=== PATIENT | female | born 1980 | race Hispanic/Latino ===

== ENCOUNTER 2016-04-18 09:29 | Emergency (ER) | payer OTHER ==
[~2016-04-18] VITALS: Ht 162.6 cm; Wt 82.1 kg
[~2016-04-18 09:29] MED LIST: AMLODIPINE BESY10 M1 PO; FIORICET 50-301 EACH PO; IBUPROFEN800 M1 PO; LOPRESSOR50 M1 PO; NORVASC5 M1 PO; PANTOPRAZOLE SO20 M1 PO; ZOFRAN ODT4 M1 PO
--- NOTE | 2016-04-18 10:00 | ED UPPER/LOWER EXTREMITY COMPL ---
History of Present Illness General Chief Complaint: Lower Extremity Injury Stated Complaint: LT KNEE PAIN Source: patient Exam Limitations: no limitations Vital Signs & Intake/Output Vital Signs & Intake/Output Vital Signs Date Time Temp Pulse Resp B/P Pulse O2 O2 Flow FiO2 Ox Delivery Rate 04/18 1015 96.0 78 16 110/64 97 Room Air 04/18 0943 95.2 82 18 121/80 99 Room Air Allergies Coded Allergies: No Known Allergies (10/08/15) Reconcile Medications Amlodipine Besylate 10 MG TABLET 1 TAB PO DAILY BP (Reported) Cyclobenzaprine HCl 10 MG TABLET 1 TAB PO QPM PRN SPASM Ibuprofen 800 MG TABLET 1 TAB PO TID PRN PAIN Metoprolol Tartrate (Lopressor) 50 MG TABLET 1 TAB PO BID hypertension Naproxen 500 MG TABLET 1 TAB PO BIDP PRN PAIN (Reported) Pantoprazole Sodium 20 MG TABLET.DR 1 TAB PO DAILY GI (Reported) Triage Note: C/O LEFT KNEE PAIN SINCE LAST PM, NO KNOWN INJURY. Triage Nurses Notes Reviewed? yes Onset: Abrupt Duration: hour(s): (12) Timing: single episode today Severity: moderate Pain/Injury Location: Left: Knee. Modifying Factors: Worsens With: movement. : No Patient currently breastfeeds: No HPI: This is a 35-year-old female presents to the ER chief complaint of left knee pain since last night. Patient denies any trauma or fall. Pain is worse with range of motion and walking. Pain is on the medial aspect of left knee. No bruising. No radiation of the pain. No swelling. No history of similar symptoms in the past before. She tried to take some jhvb-jso-ikwkrym medications without any relief. Past History Travel History Traveled to [place] past 21 day No Medical History Any Pertinent Medical History? see below for history Neurological: NONE EENT: NONE Cardiovascular: hypertension Respiratory: asthma Gastrointestinal: NONE Hepatic: NONE Renal: NONE Musculoskeletal: sciatica Psychiatric: NONE Endocrine: NONE Blood Disorders: NONE Cancer(s): NONE Surgical History Surgical History: non-contributory Psychosocial History What is your primary language Afghan Tobacco Use: Never used ETOH Use: occasional use Family History Hx Contributory? No Review of Systems Review of Systems Constitutional: Denies: chills, fever. EENTM: Reports: no symptoms. Respiratory: Denies: cough, short of breath. Cardiovascular: Denies: chest pain, palpitations. Gastrointestinal/Abdominal: Denies: abdominal pain. Genitourinary: Reports: no symptoms. Musculoskeletal: Reports: joint pain, joint swelling. Skin: Reports: no symptoms. Neurological/Psychological: Reports: no symptoms. Hematologic/Endocrine: Denies: bruising, bleeding, polyuria, polydipsia. Immunological: Denies: splenectomy. All Other Systems: Reviewed and Negative Physical Exam Physical Exam General Appearance: well developed/nourished, alert, awake, anxious, mild distress Head: atraumatic Eyes: Bilateral: PERRL, EOMI. Ears, Nose, Throat: normal pharynx, normal ENT inspection, hearing grossly normal Neck: normal inspection, supple Cardiovascular/Respiratory: regular rate/rhythm Peripheral Pulses: 2+ radial (R), 2+ ulnar (L) Gastrointestinal: SOFT NONTENDER Back: normal inspection Leg Left: normal range of motion, mass Leg Right: normal range of motion, normal inspection Hip Left: normal range of motion, mass Hip Right: normal range of motion, normal inspection Knee Left: soft tissue tenderness, limited range of motion Knee Right: normal range of motion, normal inspection Foot Left: normal inspection, normal range of motion Foot Right: normal inspection, normal range of motion Skin: intact, normal color, warm/dry Lymphatic: no anterior cervical jerry Progress Differential Diagnosis: contusion, fracture, sprain, ARTHRITIS Plan of Care: Orders Procedure Date/time Status Durable Medical Equipment 04/18 1048 Active Diagnostic Imaging: Viewed by Me: Radiology Read. Discussed w/RAD: Radiology Read. Radiology Impression: PATIENT: LIANA SAUCEDO PRESENT AGE: 35 PATIENT ACCOUNT NO: [id number] : 80 LOCATION: [facility] ORDERING PHYSICIAN: KERA WANG MD SERVICE DATE: 04/18/16 EXAM TYPE: RAD - XRY-KNEE COMPLETE LEFT EXAMINATION: XR KNEE, LEFT CLINICAL INFORMATION: Left knee pain. COMPARISON: None TECHNIQUE: Four views of the left knee. FINDINGS: There is no evidence of fracture, dislocation, or knee joint effusion. Joint spaces are well-maintained. The soft tissues appear unremarkable. IMPRESSION: No evidence of fracture, dislocation, or knee joint effusion. DICTATED BY: CASSANDRA SANDS MD DATE/TIME DICTATED:04/18/161034 RICE CLEANING MACHINE TENDER:KATY DATE/TIME TRANSCRIBED:02/10/17 / 1035 CONFIDENTIAL, DO NOT COPY WITHOUT APPROPRIATE AUTHORIZATION. <Electronically signed in Other Vendor System> SIGNED BY: CASSANDRA SANDS MD 04/18/16 1040 Departure Departure Time of Disposition: 1051 Disposition: HOME OR SELF CARE Condition: Stable Clinical Impression Primary Impression: Knee sprain Referrals: WESLEY GOLDSTEIN APRN (PCP/Family) DAMARI CHING MD Additional Instructions: Use the knee immobilizer and crutches as directed. Take the ibuprofen and Flexeril as directed. Ice and rest and elevate the extremity. Please follow-up with the orthopedic doctor in a week's time if you have no improving symptoms. Departure Forms: Customer Survey General Discharge Information Prescriptions: Current Visit Scripts Cyclobenzaprine HCl 1 TAB PO QPM PRN SPASM #12 TAB Procedures Splinting Location: LEFT KNEE IMMOBILIZER, CRUTCHES Splint Applied By: splint applied by other Pre-Proc Neuro Vasc Exam: normal Post-Proc Neuro Vasc Exam: normal
[2016-04-18 10:15] VITALS: BP 110/64
--- NOTE | 2016-04-18 10:40 | RADIOLOGY REPORT ---
EXAMINATION: XR KNEE, LEFT CLINICAL INFORMATION: Left knee pain. COMPARISON: None TECHNIQUE: Four views of the left knee. FINDINGS: There is no evidence of fracture, dislocation, or knee joint effusion. Joint spaces are well-maintained. The soft tissues appear unremarkable. IMPRESSION: No evidence of fracture, dislocation, or knee joint effusion.
[2016-04-18] MEDS ORDERED: CYCLOBENZAPRINE10 M1 PO (10:51)
[2016-04-18] MEDS ORDERED: IBUPROFEN800 M1 PO (10:51)
[2016-04-18] MEDS ORDERED: NAPROXEN500 M2 PO (11:16)
== END 2016-04-18 11:19 ==
LOC: ERH 09:29
DX: S83.92XA Sprain of unspecified site of left knee, initial encounter (principal); X58.XXXA Exposure to other specified factors, initial encounter
CPT/HCPCS: 73562-LT; J1885

== ENCOUNTER 2017-09-09 16:03 | Emergency (ER) | payer OTHER ==
[~2017-09-09] VITALS: Ht 162.6 cm; Wt 83.9 kg
[~2017-09-09 16:03] MED LIST changes: +AMOXICILLIN500 M3 PO; +CYCLOBENZAPRINE10 M1 PO; +IBUPROFEN600 M1 PO; +MUCINEX DM ER1 EACH PO; +NAPROXEN500 M2 PO; +NEOMYCIN-POLYMY10 M1 OT
[2017-09-09 16:08] VITALS: BP 130/81
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
[2017-09-09] MEDS ORDERED: IBUPROFEN800 M1 PO (16:16)
[2017-09-09] MEDS ORDERED: PERCOCET 5-3251 EACH PO (16:16)
== END 2017-09-09 16:22 ==
LOC: ERH 16:03
DX: T23.222A Burn of second degree of single left finger (nail) except thumb, initial encounter (principal); X19.XXXA Contact with other heat and hot substances, initial encounter; Y92.9 Unspecified place or not applicable; Y93.89 Activity, other specified
CPT/HCPCS: 90471; 90714

== ENCOUNTER 2017-10-29 20:41 | Emergency (ER) | payer OTHER ==
[~2017-10-29] VITALS: Ht 162.6 cm; Wt 73.5 kg
[~2017-10-29 20:41] MED LIST changes: +PERCOCET 5-3251 EACH PO
[2017-10-29 22:13] LABS: ABSOLUTE BASOPHIL COUNT 0.1 /CUMM (0.0-0.2); ABSOLUTE EOSINOPHIL COUNT 0.1 /CUMM (0.0-0.7); ABSOLUTE GRANULOCYTE CT 6.7 /CUMM (1.4-6.5); ABSOLUTE LYMPH COUNT 3.4 /CUMM (1.2-3.4); BASOPHIL % 0.7 % (0.0-2.0); EOSINOPHIL % 0.9 % (0-5); GRANULOCYTE % 59.8 % (42.2-75.2); HEMATOCRIT 41.3 % (37-47); MEAN CORPUSCULAR HGB 28.3 PG (27.0-31.0); MEAN CORPUSCULAR HGB CONC 33.4 G/DL (33.0-37.0); MEAN CORPUSCULAR VOLUME 84.8 FL (81.0-99.0); MEAN PLATELET VOLUME 8.5 FL (7.4-10.4); PLATELET COUNT 274 /CUMM (130-400); RBC DISTRIBUTION WIDTH 13.6 % (11.5-14.5); RED BLOOD CELL CT 4.86 /CUMM (4.20-5.40); WHITE BLOOD CELL COUNT 11.3 /CUMM (4.8-10.8)
[2017-10-29 22:51] VITALS: BP 142/95
--- NOTE | 2017-10-29 23:47 | CT SCAN REPORT ---
EXAMINATION: CT ABDOMEN AND PELVIS WITH CONTRAST CLINICAL INFORMATION: Lower abdominal pain. COMPARISON: None. TECHNIQUE: Contiguous axial thin section helical images of the abdomen and pelvis were performed following the administration of 95 mL of intravenous Optiray 320. The data set was reformatted in the coronal and sagittal planes and reviewed on an independent workstation. DLP: 457 mGy-cm. FINDINGS: The visualized lung bases are clear. The visualized portions of the heart are unremarkable. The liver is of normal size and attenuation without focal lesions nor intrahepatic biliary ductal dilation. Patient is status post cholecystectomy. Surgical clips are present. The spleen, pancreas, adrenal glands are unremarkable. Both kidneys are of normal size and attenuation without hydronephrosis or nephrolithiasis. Following the administration of IV contrast, prompt symmetric nephrograms are displayed. There is no abdominal free fluid. There is neither mesenteric nor retroperitoneal lymphadenopathy. Normal unopacified loops of small and large bowel are identified. There is no pelvic free fluid. The uterus is not identified. Both ovaries are visualized. The urinary bladder is unremarkable. There is neither pelvic nor inguinal lymphadenopathy. Bone windows: Neither sclerotic nor lytic bone lesions are identified. There is mild disc height loss at L5/S1. IMPRESSION: No evidence for acute abdominal or pelvic inflammatory or infectious processes.
[2017-10-30] MEDS ORDERED: ZOFRAN ODT4 M1 SL (00:11)
--- NOTE | 2017-10-30 00:11 | ED GENERAL ADULT ---
History of Present Illness General Chief Complaint: General Adult Stated Complaint: ACID REFLUX PER FAMILY Source: patient Exam Limitations: no limitations Vital Signs & Intake/Output Vital Signs & Intake/Output Vital Signs Date Time Temp Pulse Resp B/P B/P Pulse O2 O2 Flow FiO2 Mean Ox Delivery Rate 10/29 2251 97.6 70 18 142/95 98 Room Air 10/29 2200 Room Air 10/29 2046 96.6 92 20 136/89 99 Room Air ED Intake and Output 10/30 0000 10/29 1200 Intake Total 0 Output Total Balance 0 Intake, Oral 0 Patient 162 lb Weight Weight Reported by Patient Measurement Method Allergies Coded Allergies: No Known Allergies (07/16/17) Reconcile Medications Amlodipine Besylate 10 MG TABLET 1 TAB PO DAILY BP (Reported) Amoxicillin 500 MG TABLET 1 TAB PO BID PRN EAR INFECTION Cyclobenzaprine HCl 10 MG TABLET 1 TAB PO QPM PRN SPASM Cyclobenzaprine HCl 10 MG TABLET 1 TAB PO TID PRN muscle spasm Cyclobenzaprine HCl 10 MG TABLET 1 TAB PO Q8P PAIN OR SPASM Cyclobenzaprine HCl 10 MG TABLET 1 TAB PO Q6P PRN muscle strain/spasm Guaifenesin/Dextromethorphan (Mucinex Dm ER 1,200-60 MG Tab) 1,200 MG-60 MG TBMP.12HR 1 TAB PO BID PRN CONGESTION Ibuprofen 800 MG TABLET 1 TAB PO TID PAIN Ibuprofen 800 MG TABLET 1 TAB PO TID PRN pain Ibuprofen 600 MG TABLET 1 TAB PO TID PRN PAIN with food Ibuprofen 600 MG TABLET 1 TAB PO Q6P PRN pain with food Ibuprofen 800 MG TABLET 1 TAB PO TID PRN PAIN Metoprolol Tartrate (Lopressor) 50 MG TABLET 1 TAB PO BID hypertension Naproxen 500 MG TABLET 1 TAB PO BIDP PRN PAIN (Reported) Neomycin/Polymyxin B Sulf/Hc (Xsasbiui-Sgmhsmagy-Vq Ear Susp) 3.5 MG/ML-10,000 UNIT/ML-1 % DROPS.SUSP 4 GTT OT TID OTITIS EXTERNA Ondansetron (Zofran Odt) 4 MG TAB.RAPDIS 1 TAB SL TID PRN nausea Oxycodone HCl/Acetaminophen (Percocet 5-325 MG Tablet) 5 MG-325 MG TABLET 1-2 TAB PO BID PAIN Pantoprazole Sodium 20 MG TABLET.DR 1 TAB PO DAILY GI (Reported) Triage Note: PT HERE WITH C/O NAUSEA X4 DAYS AND VOMITING TODAY. PT REPORTS PAIN AND BURNING IN THE EPIGASTRIC AREA. Triage Nurses Notes Reviewed? yes Onset: Gradual Duration: day(s): Timing: constant : No Patient currently breastfeeds: No HPI: 37-year-old female with a history of hypertension and asthma presenting with burning epigastric pain 4 days. States that the pain is nonradiating with no worsening or alleviating factors. She endorses nausea with multiple episodes of vomiting. States that her nausea and vomiting have since resolved and she is now able to tolerate p.o. Has been using omeprazole without relief. Denies fevers, chest pain, shortness of breath, diarrhea, bloody stools, melena, dysuria. No recent sick contacts or travel. (Sabrina Lee) Past History Travel History Traveled to [place] past 21 day No Medical History Any Pertinent Medical History? see below for history Neurological: NONE EENT: NONE Cardiovascular: hypertension Respiratory: asthma Gastrointestinal: NONE Hepatic: cholelithiasis Renal: NONE Musculoskeletal: sciatica Psychiatric: NONE Endocrine: NONE Blood Disorders: NONE Cancer(s): NONE DIRECT MAIL CLERK/Reproductive: NONE Tetanus Vaccine: 09/09/17 Surgical History Surgical History: hysterectomy Psychosocial History What is your primary language Chinese Tobacco Use: Never used ETOH Use: denies use Illicit Drug Use: denies illicit drug use Family History Hx Contributory? No (Sabrina Lee) Review of Systems Review of Systems Constitutional: Reports: no symptoms. EENTM: Reports: no symptoms. Respiratory: Reports: no symptoms. Cardiovascular: Reports: no symptoms. GI: Reports: see HPI. Genitourinary: Reports: no symptoms. Musculoskeletal: Reports: no symptoms. Skin: Reports: no symptoms. Neurological/Psychological: Reports: no symptoms. Hematologic/Endocrine: Reports: no symptoms. Immunologic/Allergic: Reports: no symptoms. All Other Systems: Reviewed and Negative (Sabrina Lee) Physical Exam Physical Exam General Appearance: well developed/nourished, no apparent distress, alert, awake Comments: Gen.: Well-nourished, well-developed, no acute distress. Head: Normocephalic, atraumatic. Eyes: Normal inspection bilaterally Ears: Normal inspection bilaterally Nose: Normal inspection Neck: Normal inspection Lungs: clear to auscultation bilaterally, normnal breath sounds Heart: regular rate and rhythm Abdomen: soft, nondistended, normal bowel sounds, diffuse tenderness to palpation but worse in the epigastrium, no rebound or guarding Back: No CVA tenderness Extremities: Normal inspection Neurologic: alert and oriented x3, steady gait Skin: warm and dry Psychiatric: Normal mood and affect, no apparent delusions or hallucinations, behavior appropriate Core Measures ACS in differential dx? No CVA/TIA Diagnosis: No Sepsis Present: No Sepsis Focused Exam Completed? No (Johann SILVA,Sabrina) Progress Differential Diagnoses I considered the following diagnoses in my evaluation of the patient: [GERD versus gastritis versus peptic ulcer versus pancreatitis versus biliary versus perforated viscus versus ACS] Plan of Care: Orders Procedure Date/time Status Add-on Test (ER Only) 10/30 2247 Active Add-on Test (ER Only) 10/29 2218 Active URINALYSIS 10/30 2215 Complete LACTIC ACID 10/29 2156 Complete HUMAN BETA HCG SCREEN 10/29 2156 Complete TROPONIN LEVEL 10/30 2135 Complete LIPASE 10/30 2135 Complete COMPREHENSIVE METABOLIC PANEL 10/30 2135 Complete CBC WITHOUT DIFFERENTIAL 10/30 2135 Complete EKG 10/29 2045 Active Current Medications Sig/Saturnino Start time Last Medication Dose Stop Time Status Admin Morphine Sulfate 4 MG ONCE ONE 10/29 2229 CAN (MORPHINE SULFATE) 10/29 2230 Laboratory Tests 10/29/173: Urine Color YEL, Urine Clarity CLEAR, Urine pH 6.5, Ur Specific [place] 1.010, Urine Protein NEG, Urine Ketones NEG, Urine Nitrite NEG, Urine Bilirubin NEG, Urine Urobilinogen 1.0, Ur Leukocyte Esterase NEG, Ur Microscopic SEDIMENT EXAMINED, Urine RBC 1-3, Ur Epithelial Cells FEW, Urine Hemoglobin TRACE-INTACT, Urine Glucose NEG 10/29/172156: Anion Gap 10, Estimated GFR > 60, BUN/Creatinine Ratio 28.3 H, Glucose 101 H, Lactic Acid 0.9, Calcium 9.5, Total Bilirubin 0.5, AST 37 H, ALT 61 H, Alkaline Phosphatase 77, Troponin I < 0.01, Total Protein 7.4, Albumin 4.4, Globulin 3.0, Albumin/Globulin Ratio 1.5, Lipase 117, Total Beta HCG NEGATIVE, CBC w Diff NO MAN DIFF REQ, RBC 4.86, MCV 84.8, MCH 28.3, MCHC 33.4, RDW 13.6, MPV 8.5, Gran % 59.8, Lymphocytes % 29.8, Monocytes % 8.8, Eosinophils % 0.9, Basophils % 0.7, Absolute Granulocytes 6.7 H, Absolute Lymphocytes 3.4, Absolute Monocytes 1.0 H, Absolute Eosinophils 0.1, Absolute Basophils 0.1 EKG is nonischemic, troponin negative Labs unremarkable CT scan unremarkable Patient reports improvement in her symptoms after GI cocktail, Pepcid, morphine, and Tylenol Likely with GERD versus gastritis, instructed to continue her omeprazole, she will use Maalox [id number] for breakthrough pain, given Zofran in case her nausea returns. At this time patient is well-appearing with normal vital signs, and requesting to be discharged home. She will follow-up with her PMD for reevaluation and given strict return precautions. Initial ED EKG: normal sinus rhythm, no ST T wave changes (Sabrina Lee) Departure Departure Disposition: HOME OR SELF CARE Condition: Stable Clinical Impression Primary Impression: Epigastric pain Secondary Impressions: Nausea Referrals: Annie Payne APRN (PCP/Family) Santos Messina MD Additional Instructions: Continue taking your omeprazole as prescribed. You may use Maalox for breakthrough pain. Use Zofran as needed for nausea. Follow-up with the microsoft net developer for reevaluation. Return to the emergency department for any new or worsening symptoms Departure Forms: Customer Survey General Discharge Information Prescriptions: Current Visit Scripts Ondansetron (Zofran Odt) 1 TAB SL TID PRN nausea #20 TAB (Sabrina Lee) PA/LACING PRESSER Co-Sign Statement Statement: ED Attending supervision documentation- [] I saw and evaluated the patient. I have also reviewed all the pertinent lab results and diagnostic results. I agree with the findings and the plan of care as documented in the PA's/LACING PRESSER's documentation. [X] I have reviewed the ED Record and agree with the PA's/LACING PRESSER's documentation. [] Additions or exceptions (if any) to the PAs/LACING PRESSER's note and plan are summarized below: [] (Woodrow Jean DO) Critical Care Note Critical Care Note Critical Care Time: non-applicable (Sabrina Lee)
== END 2017-10-30 00:42 ==
LOC: ERH 20:41
PROVIDERS: Physician Assistant
DX: R10.13 Epigastric pain (principal); R11.0 Nausea; I10 Essential (primary) hypertension; J45.909 Unspecified asthma, uncomplicated
CPT/HCPCS: 74177; 81001; 81025; 93005; 93010; 96361; 96374; J0131

== ENCOUNTER 2017-12-03 18:23 | Emergency (ER) | payer OTHER ==
[~2017-12-03] VITALS: Ht 162.6 cm; Wt 85.3 kg
[~2017-12-03 18:23] MED LIST changes: +ZOFRAN ODT4 M1 SL
[2017-12-03 19:30] LABS: ABSOLUTE BASOPHIL COUNT 0.2 /CUMM (0.0-0.2); ABSOLUTE EOSINOPHIL COUNT 0.1 /CUMM (0.0-0.7); ABSOLUTE GRANULOCYTE CT 7.4 /CUMM (1.4-6.5); ABSOLUTE LYMPH COUNT 3.3 /CUMM (1.2-3.4); ABSOLUTE MONOCYTE COUNT 0.9 /CUMM (0.10-0.60); BASOPHIL % 1.5 % (0.0-2.0); EOSINOPHIL % 0.9 % (0-5); GRANULOCYTE % 62.6 % (42.2-75.2); MEAN CORPUSCULAR HGB 28.3 PG (27.0-31.0); MEAN CORPUSCULAR HGB CONC 33.4 G/DL (33.0-37.0); MEAN CORPUSCULAR VOLUME 84.6 FL (81.0-99.0); MEAN PLATELET VOLUME 8.6 FL (7.4-10.4); PLATELET COUNT 264 /CUMM (130-400); RBC DISTRIBUTION WIDTH 12.9 % (11.5-14.5); RED BLOOD CELL CT 5.09 /CUMM (4.20-5.40); WHITE BLOOD CELL COUNT 11.9 /CUMM (4.8-10.8)
--- NOTE | 2017-12-03 20:34 | ED GENERAL ADULT ---
History of Present Illness General Chief Complaint: Chest Pain Stated Complaint: CP, PALPATATIONS, OLMOS Source: patient, family Exam Limitations: language barrier Vital Signs & Intake/Output Vital Signs & Intake/Output Vital Signs Date Time Temp Pulse Resp B/P B/P Pulse O2 O2 Flow FiO2 Mean Ox Delivery Rate 12/03 2046 Room Air 12/03 2045 98.1 93 16 128/83 99 Room Air 12/03 183 98.1 100 18 131/80 98 Room Air Allergies Coded Allergies: No Known Allergies (07/16/17) Reconcile Medications Amlodipine Besylate 10 MG TABLET 1 TAB PO DAILY BP (Reported) Amoxicillin 500 MG TABLET 1 TAB PO BID PRN EAR INFECTION Cyclobenzaprine HCl 10 MG TABLET 1 TAB PO QPM PRN SPASM Cyclobenzaprine HCl 10 MG TABLET 1 TAB PO TID PRN muscle spasm Cyclobenzaprine HCl 10 MG TABLET 1 TAB PO Q8P PAIN OR SPASM Cyclobenzaprine HCl 10 MG TABLET 1 TAB PO Q6P PRN muscle strain/spasm Guaifenesin/Dextromethorphan (Mucinex Dm ER 1,200-60 MG Tab) 1,200 MG-60 MG TBMP.12HR 1 TAB PO BID PRN CONGESTION Ibuprofen 800 MG TABLET 1 TAB PO TID PAIN Ibuprofen 800 MG TABLET 1 TAB PO TID PRN pain Ibuprofen 600 MG TABLET 1 TAB PO TID PRN PAIN with food Ibuprofen 600 MG TABLET 1 TAB PO Q6P PRN pain with food Ibuprofen 800 MG TABLET 1 TAB PO TID PRN PAIN Metoprolol Tartrate (Lopressor) 50 MG TABLET 1 TAB PO BID hypertension Naproxen 500 MG TABLET 1 TAB PO BIDP PRN PAIN (Reported) Neomycin/Polymyxin B Sulf/Hc (Ftbkeehk-Bhkzyahdr-Ob Ear Susp) 3.5 MG/ML-10,000 UNIT/ML-1 % DROPS.SUSP 4 GTT OT TID OTITIS EXTERNA Ondansetron (Zofran Odt) 4 MG TAB.RAPDIS 1 TAB SL TID PRN nausea Oxycodone HCl/Acetaminophen (Percocet 5-325 MG Tablet) 5 MG-325 MG TABLET 1-2 TAB PO BID PAIN Pantoprazole Sodium 20 MG TABLET.DR 1 TAB PO DAILY GI (Reported) Triage Note: 37 YEAR OLD FEMALE STATES THAT SHE HAS BEEN HAVING MID STERNAL NON RADIATING CP FOR THE PAST 3 DAYS. PAIN CONSTANT AND DESCRIBES A SQUEEZING Triage Nurses Notes Reviewed? yes Onset: Gradual Duration: day(s): Timing: constant : No Patient currently breastfeeds: No HPI: 37 y/o female with a h/o HTN, GERD, and asthma presenting with CP x3 days. Reports a non-radiating substernal pain that feels like someone is squeezing her chest. States it first started while she was getting ready for bed a few nights ago. The pain is worse with laying flat, and mildly better with sitting upright. Also reports she developed epigastric burning pain tonight. Has a h/o GERD and took nexium without relief. Denies assoicated SOB, nausea, vomiting, diaphoresis , light headedness, dizziness. Past History Travel History Traveled to [place] past 21 day No Medical History Any Pertinent Medical History? see below for history Neurological: NONE EENT: NONE Cardiovascular: hypertension Respiratory: asthma Gastrointestinal: NONE Hepatic: cholelithiasis Renal: NONE Musculoskeletal: sciatica Psychiatric: NONE Endocrine: NONE Blood Disorders: NONE Cancer(s): NONE CELERY TIER/Reproductive: NONE Tetanus Vaccine: 09/09/17 Surgical History Surgical History: hysterectomy Psychosocial History What is your primary language Greenlandic Tobacco Use: Never used ETOH Use: denies use Illicit Drug Use: denies illicit drug use Family History Hx Contributory? No Review of Systems Review of Systems Constitutional: Reports: no symptoms. EENTM: Reports: no symptoms. Respiratory: Reports: no symptoms. Cardiovascular: Reports: see HPI. GI: Reports: see HPI. Genitourinary: Reports: no symptoms. Musculoskeletal: Reports: no symptoms. Skin: Reports: no symptoms. Neurological/Psychological: Reports: no symptoms. Hematologic/Endocrine: Reports: no symptoms. Immunologic/Allergic: Reports: no symptoms. All Other Systems: Reviewed and Negative Physical Exam Physical Exam General Appearance: well developed/nourished, no apparent distress, alert, awake Comments: Gen.: Well-nourished, well-developed, no acute distress. Head: Normocephalic, atraumatic. Eyes: Normal inspection bilaterally Ears: Normal inspection bilaterally Nose: Normal inspection Neck: Normal inspection Lungs: clear to auscultation bilaterally, normnal breath sounds, no chest wall tenderness Heart: regular rate and rhythm Abdomen: soft, nondistended, normal bowel sounds, mild tenderness in the epigastrium, no rebound or guarding Extremities: Normal inspection Neurologic: alert and oriented x3, steady gait Skin: warm and dry Psychiatric: Normal mood and affect, no apparent delusions or hallucinations, behavior appropriate Core Measures ACS in differential dx? No CVA/TIA Diagnosis: No Sepsis Present: No Sepsis Focused Exam Completed? No Progress Differential Diagnoses I considered the following diagnoses in my evaluation of the patient: [GERD versus gastritis versus peptic ulcer disease, low concern for ACS versus angina versus PE versus Boerhaave's versus aortic dissection versus tamponade versus pericardial effusion versus pericarditis] Plan of Care: Orders Procedure Date/time Status Add-on Test (ER Only) 12/03 2200 Active TROPONIN LEVEL 12/03 2200 Complete EKG 12/03 2200 Active Add-on Test (ER Only) 12/03 2041 Active Add-on Test (ER Only) 12/03 2033 Active LIPASE 12/03 1917 Complete HUMAN BETA HCG SCREEN 12/03 1917 Complete WESTERGREN SED RATE 12/03 1917 Complete C-REACTIVE PROTEIN 12/03 1917 Complete TROPONIN LEVEL 12/03 183 Complete COMPREHENSIVE METABOLIC PANEL 12/03 183 Complete CBC WITHOUT DIFFERENTIAL 12/03 1833 Complete EKG 12/03 1825 Active Laboratory Tests 12/03/17 2218: Troponin I < 0.01 12/03/171917: Anion Gap 10, Estimated GFR > 60, BUN/Creatinine Ratio 22.0, Glucose 124 H, Calcium 9.3, Total Bilirubin 0.4, AST 37 H, ALT 71 H, Alkaline Phosphatase 80, Troponin I < 0.01, C-Reactive Prot, Quant < 0.5, Total Protein 7.3, Albumin 4.3, Globulin 3.0, Albumin/Globulin Ratio 1.4, Lipase 135, Total Beta HCG NEGATIVE, CBC w Diff NO MAN DIFF REQ, RBC 5.09, MCV 84.6, MCH 28.3, MCHC 33.4, RDW 12.9, MPV 8.6, Gran % 62.6, Lymphocytes % 27.6, Monocytes % 7.4, Eosinophils % 0.9, Basophils % 1.5, Absolute Granulocytes 7.4 H, Absolute Lymphocytes 3.3, Absolute Monocytes 0.9 H, Absolute Eosinophils 0.1, Absolute Basophils 0.2, ESR Westergren 6 12/03/171833: Urine Test Cancelled EKG showed normal sinus rhythm and troponin negative x2. Labs are otherwise unremarkable Chest x-ray unremarkable Patient reports complete resolution of her symptoms after GI cocktail and Pepcid She has a heart score of 1, she scored 1 point for her history of hypertension There is low concern for cardiac etiology, her symptoms are likely secondary to GERD Instructed to continue Nexium and Maalox as needed for breakthrough pain Counseled on supportive care and strict return precautions Initial ED EKG: none Departure Departure Disposition: HOME OR SELF CARE Condition: Stable Clinical Impression Primary Impression: Chest pain Referrals: Annie Payne APRN (PCP/Family) Additional Instructions: Use Nexium as needed for your acid reflux. Use Maalox as needed for breakthrough pain. Follow-up with your primary care provider for reevaluation. Return to the emergency department for any new or worsening symptoms. Departure Forms: Customer Survey General Discharge Information Critical Care Note Critical Care Note Critical Care Time: non-applicable
--- NOTE | 2017-12-03 22:40 | RADIOLOGY REPORT ---
EXAMINATION: XR CHEST CLINICAL INFORMATION: Chest pain COMPARISON: 09/26/2017 TECHNIQUE: 2 views of the chest were obtained. FINDINGS: Cardiac and mediastinal silhouettes are normal. The lungs and pleural spaces are clear. Surgical clips are visible in the right upper quadrant of the abdomen. IMPRESSION: Normal examination.
[2017-12-03 23:16] VITALS: BP 125/87
== END 2017-12-03 23:18 ==
LOC: ERH 18:23
PROVIDERS: Physician Assistant Medical
DX: R07.2 Precordial pain (principal); R10.13 Epigastric pain; K21.9 Gastro-esophageal reflux disease without esophagitis; I10 Essential (primary) hypertension; J45.909 Unspecified asthma, uncomplicated
CPT/HCPCS: 71046; 81025; 93005; 93010